=== PATIENT | female | born 1950 | race Caucasian/White ===

== ENCOUNTER 2021-07-11 04:16 | Emergency (ER) | payer MEDICARE, BC ==
[~2021-07-11] VITALS: Ht 157.5 cm; Wt 70.5 kg
[2021-07-11 04:26] VITALS: TEMP 97.8
[2021-07-11] MEDS ORDERED: TENORMIN100 MG PO (06:35)
[2021-07-11] MEDS ORDERED: NAMENDA 10MG TA10 MG (06:36)
[2021-07-11] MEDS ORDERED: GLUCOPHAGE XR500 M1 PO (06:37)
[2021-07-11] MEDS ORDERED: ALTACE 10MG TAB10 MG PO (06:37)
[2021-07-11] MEDS ORDERED: ZOLOFT 100MG100 MG PO (06:38)
[2021-07-11] MEDS ORDERED: DESYREL 50MG50 MG PO (06:39)
[2021-07-11] MEDS ORDERED: ARICEPT10 MG PO (06:39)
[2021-07-11] MEDS ORDERED: ZOCOR 80MG80 MG (06:40)
[2021-07-11 06:43] LABS: PROTHROMBIN TIME 10.8 SECONDS (9.7-12.8)
[2021-07-11] MEDS ORDERED: ASPIRIN 81M81 MG/TA2 PO (06:50)
[2021-07-11 06:56] LABS: BASO % 0.4 % (0.0-2.0); EOS # 0.2 K/mm3 (0.0-0.7); EOS % 1.4 % (0.0-4.0); GRAN # 9.5 K/mm3 (1.4-6.5); HEMATOCRIT 41.9 % (37.0-47.0); HEMOGLOBIN 13.5 g/dl (12.5-16.0); LYMPH # 1.1 K/mm3 (1.2-3.4); LYMPH % 9.7 % (20.0-51.0); MEAN CELL VOLUME 93 fl (80.0-100.0); MEAN CORPUSCULAR HEMOGLOBIN 30 pg (27-31); MEAN CORPUSCULAR HGB CONC 32 g/dl (33.0-37.0); MONO # 0.5 K/mm3 (0.1-0.6); MONO % 4.5 % (1.7-9.3); PLATELET COUNT 209 K/mm3 (130-400); RED BLOOD COUNT 4.52 M/mm3 (4.10-5.30); REDCELL DISTRIBUTION WIDTH-CV 13.9 % (11.5-14.5)
[2021-07-11 06:59] LABS: ALBUMIN 3.6 gm/dL (3.4-4.8); BILIRUBIN,TOTAL 0.3 mg/dL (0.2-1.2); CALCIUM 8.8 mg/dL (8.4-10.2); CREATININE, serum 0.65 mg/dL (0.57-1.11); TOTAL PROTEIN 6.4 gm/dL (6.2-8.1)
[2021-07-11 07:30] VITALS: BP 146/70; PULSE 55
== END 2021-07-11 07:30 | disposition short-term general hospital (02) ==
LOC: COL.ER 04:16
PROVIDERS: Emergency Medicine
DX: S01.312A Laceration without foreign body of left ear, initial encounter (principal); S06.6X0A Traumatic subarachnoid hemorrhage without loss of consciousness, initial encounter; Z23 Encounter for immunization; Z79.82 Long term (current) use of aspirin; Z20.822 Contact with and (suspected) exposure to COVID-19; W10.9XXA Fall (on) (from) unspecified stairs and steps, initial encounter; Y92.009 Unspecified place in unspecified non-institutional (private) residence as the place of occurrence of the external cause
CPT/HCPCS: J2060; J7030